=== PATIENT | male | born 1965 ===

== ENCOUNTER 2017-09-09 23:07 | Observation (INO) | payer MEDICARE ==
[~2017-09-09] VITALS: Ht 180.3 cm; Wt 105.6 kg
[2017-09-09] MEDS ORDERED: PHOSLO667 MG PO (23:14)
[2017-09-09] MEDS ORDERED: NEURONTIN 300300 MG PO (23:15)
[2017-09-09] MEDS ORDERED: FERROUS SULFAT325 MG PO (23:16)
[2017-09-09 23:20] VITALS: BP 168/95; Ht 180.3 cm; Wt 105.6 kg
[2017-09-09 23:53] LABS: ANION GAP 13.1 mmol/L (8-16); BILIRUBIN - TOTAL 0.78 mg/dL (0.2-1.3); CALCIUM 8.1 mg/dL (8.5-10.1); CARBON DIOXIDE 27.1 mmol/L (21.0-32.0); CREATININE - SERUM 11.8 mg/dL (0.6-1.3); PROTEIN - SERUM 7.2 g/dL (6.4-8.2)
[2017-09-09 23:55] LABS: POTASSIUM - SERUM 6.2 mmol/L (3.5-5.1)
[2017-09-10 08:46] VITALS: BP 121/91
== END 2017-09-10 11:30 | disposition home or self-care (01) ==
LOC: D.M2 23:07 → OBSVTIME 23:07 → D.M2 23:07
PROVIDERS: Internal Medicine Nephrology
DX: E87.5 Hyperkalemia (principal); E11.22 Type 2 diabetes mellitus with diabetic chronic kidney disease; I12.0 Hypertensive chronic kidney disease with stage 5 chronic kidney disease or end stage renal disease; N18.6 End stage renal disease; Z99.2 Dependence on renal dialysis; Z87.891 Personal history of nicotine dependence